=== PATIENT | female | born 2005 | race Two or more races ===

== ENCOUNTER 2023-12-28 08:37 | Emergency (ER) | payer OTHER ==
[~2023-12-28] VITALS: Ht 149.9 cm; Wt 49.9 kg
[2023-12-28] MEDS ORDERED: KETOROLAC TROMETHAMINE 15 MG VIAL IV SCH (09:00)
[2023-12-28] MEDS ORDERED: 0.9 % SODIUM CHLORIDE 1,000 ML IV SCH (09:00)
[2023-12-28 10:04] LABS: HEMATOCRIT 39.8 % (36.0-45.00); HEMOGLOBIN 13.5 g/dL (12.0-15.00); MEAN CELL VOLUME 88.2 fL (80.00-100.00); MEAN CORPUSCULAR HEMOGLOBIN 29.8 pg (27.00-32.0); MEAN CORPUSCULAR HGB CONC 33.8 g/dl (32.0-36.0); PLATELET COUNT 283 K/uL (150-450); RED BLOOD COUNT 4.51 M/uL (4.00-6.00); RED CELL DISTRIBUTION WIDTH 12.9 % (11.5-14.5)
[2023-12-28 10:26] LABS: ALBUMIN 3.8 gm/dL (3.4-5.0); BILIRUBIN TOTAL 0.59 mg/dL (0.3-1.2); CALCIUM 9.3 mg/dL (8.5-10.1); CREATININE SERUM 0.62 mg/dL (0.55-1.02); GFR 122.72; GLOBULINA 3.6 G/DL (2.4-3.5); POTASSIUM 3.9 mEq/L (3.5-5.1); TOTAL PROTEIN 7.4 gm/dL (6.4-8.2)
[2023-12-28 10:29] LABS: PH,URINE 5.5 (5.0-8.0); URINE APPEARANCE Cloudy; URINE BILIRRUBIN Negative (NEGATIVE); URINE BLOOD Negative; URINE COLOR Yellow; URINE GLUCOSE Negative (NEGATIVE); URINE KETONE Negative (NEGATIVE); URINE LEUKOCYTE Small; URINE NITRATE Negative; URINE PROTEIN Negative (NEGATIVE); URINE UROBILINOGEN 0.2 E.U./dl
[2023-12-28 10:30] LABS: URINE BACTERIA 5408.9 uL (0.0-1933); URINE EPITHELIAL CELLS 86.5 uL (0.0-38.8); URINE RBC 9.7 uL (0.0-20.8); URINE WBC 53.9 uL (0.0-23.2)
[2023-12-28] MEDS ORDERED: CIPROFLOXACIN IN 5 % DEXTROSE 400 MG/200 ML PIGGYBAG IV ONE (12:15)
[2023-12-28] MEDS ORDERED: KETOROLAC TROMETHAMINE 15 MG VIAL IV ONE (14:00)
[2023-12-28] MEDS ORDERED: KETO10TA2 PO (15:57)
[2023-12-28] MEDS ORDERED: TAMS0.4C PO (15:57)
[2023-12-28] MEDS ORDERED: CEPHALEXIN500 MG PO (16:08)
== END 2023-12-28 16:38 | disposition home or self-care (01) ==
LOC: EMR PED 08:39 → ER 08:39 → EMR PED 09:28
PROVIDERS: Student in an Organized Health Care Education/Training Program
DX: N20.0 Calculus of kidney (principal); N39.0 Urinary tract infection, site not specified; R10.9 Unspecified abdominal pain